=== PATIENT | female | born 1955 | race Caucasian/White ===

== ENCOUNTER 2021-03-12 09:17 | Emergency (ER) | payer OTHER, SELFPAY ==
--- NOTE | ~2021-03-12 | XR_ITS ---
EXAMINATION: XR wrist LT 2V EXAM DATE: 03/12/2021 11:39 INDICATION: Post reduction. TECHNIQUE: Frontal and lateral projections of the left wrist. Comparison is made to prior examinatio n from earlier same date. FINDINGS: There is been reduction in previously seen posterior angulation and displacement to the le ft radial comminuted distal metaphyseal intra-articular fracture. Ulnar styloid avulsion fracture poo rly visualized through the splint which has been applied. IMPRESSION: Splinted, reduced left distal radial and ulnar styloid fractures. Reviewed, dictated and finalized at location A.
--- NOTE | ~2021-03-12 | XR_ITS ---
EXAMINATION: XR wrist LT min 3V EXAM DATE: 03/12/2021 09:38 INDICATION: Ground level fall x1day. Swelling, radial side LT wrist pain. Fractures. Initial encounte r. TECHNIQUE: Frontal, oblique, lateral projections left wrist. There is no prior study for comparison . FINDINGS: Acute closed posttraumatic fracture of the left radial distal metaphysis with about 25 deg alex of posterior angulation, mild comminution and mild posterior and radial displacement of some fra gments. Fracture line is identified extending into the radiocarpal joint. Also small acute ulnar styloid closed posttraumatic avulsion fracture. There is overlying soft tissue swelling. Carpal bones are unremarkable. IMPRESSION: 1. Left radial distal metaphyseal comminuted intra-articular fracture. Mild posterior angulation. 2. Tiny ulnar styloid avulsion. Reviewed, dictated and finalized at location A. IMPRESSION: 1. Left radial distal metaphyseal comminuted intra-articular fracture. Mild po sterior angulation. 2. Tiny ulnar styloid avulsion.
[2021-03-12 09:23] VITALS: BP 103/74; PULSE 92; RESP 18; TEMP 36.1; O2SAT 97
[2021-03-12] MEDS: HYDROcodone/acetaminophen (*CRX) 5-325 MG TABLET 1 TAB PO (09:50)
--- NOTE | 2021-03-12 10:15 | ED.UPPEXIN ---
HPI - Extremity Injury (Upper) General Chief Complaint: Extremity Injury, Upper <MARTIR Jara - Last Filed: 03/13/21 12:01> Stated Complaint: left arm injury <MARTIR Jara - Last Filed: 03/13/21 12:01> Time Seen by Provider: 03/12/21 09:31 <MARTIR Jara - Last Filed: 03/13/21 12:01> Source: patient <MARTIR Jara - Last Filed: 03/13/21 12:01> Mode of arrival: ambulatory <MARTIR Jara - Last Filed: 03/13/21 12:01> Limitations: no limitations <MARTIR Jara - Last Filed: 03/13/21 12:01> History of Present Illness HPI narrative: Patient is a 65-year-old female who presents complaining of left wrist pain. Patient reports tripping and falling in bedroom and landing on left wrist last pm. Patient denies hitting head, LOC and denies other injuries. Patient reports taking 2 Tylenol #3 last pm. Moderate edema noted to wrist and hand. Patient denies significant medical history. <MARTIR Jara - Last Filed: 03/13/21 12:01> MD complaint: injury to: left and hand <MARTIR Jara - Last Filed: 03/13/21 12:01> Related Data Allergies/Adverse Reactions: Allergies Allergy/AdvReac Type Severity Reaction Status Date / Time No Known Allergies Allergy Unverified 04/13/15 20:38 <MARTIR Jara - Last Filed: 03/13/21 12:01> Review of Systems Review of Systems: Narrative: CONSTITUTIONAL: Denies fever, chills, or sweats. EYES: Denies visual changes, redness, or discharge. ENT: Denies rhinorrhea, congestion, sore throat, or otalgia. CARDIOVASCULAR: Denies chest pain, palpitations, or edema. RESPIRATORY: Denies cough or dyspnea. GASTROINTESTINAL: Denies abdominal pain, nausea, vomiting, or diarrhea. GENITOURINARY: Denies dysuria or hematuria. SKIN: Denies rash or itching. MUSCULOSKELETAL: Reports left wrist pain NEUROLOGIC: Denies headache, numbness, dizziness, or weakness. PSYCHIATRIC: Denies anxiety or depression. <MARTIR Jara - Last Filed: 03/13/21 12:01> [facility] Past Medical History Medical History: Medical History No significant past medical history <MARTIR Jara - Last Filed: 03/13/21 12:01> Surgical History Surgical History: Surgical History H/O adenoidectomy <MARTIR Jara - Last Filed: 03/13/21 12:01> Family History Family History: Family History Other Hypertension <MARTIR Jara - Last Filed: 03/13/21 12:01> Social History Social History: Social History (Updated 03/12/21 @ 10:19 by MARTIR Jara) Smoking status: Never smoker Alcohol intake: never Substance use: former Substance use type: heroin Living arrangements: with family <MARTIR Jara - Last Filed: 03/13/21 12:01> Exam Narrative: Exam Narrative: GENERAL: Well-appearing, well-nourished, and in no acute distress. HEAD: Normocephalic, atraumatic. EYES: EOMI. No redness or drainage. Conjunctiva are normal. ENT: Mucous membranes pink and moist. CHEST: No respiratory distress. Clear to auscultation. HEART: Regular rate and rhythm. EXTREMITIES: Moderate edema to left hand and wrist, distal sensation intact, able to flex and extend all fingers. Good capillary refill. Deformity noted at left wrist. SKIN: Warm, dry, no rash. NEURO: No focal deficits. Alert and oriented x3. Gait steady. PSYCH: Normal affect. No signs of depression or anxiety. <MARTIR Jara - Last Filed: 03/13/21 12:01> Course [employer] Physician Supervision Patient presenting for evaluation following a fall with left wrist pain/deformity last night. Pt with confirmed communited distal radius fracture with displacement. Pt had hematoma block, and was reduced. Improved alignment. Pt remained neurovascularly i
[2021-03-12 11:05] VITALS: BP 105/67; PULSE 90; RESP 17; O2SAT 99
== END 2021-03-12 12:16 | disposition home or self-care (01) ==
PROVIDERS: Emergency Provider Nurse Practitioner
DX: S52.572A Other intraarticular fracture of lower end of left radius, initial encounter for closed fracture (principal); S52.612A Displaced fracture of left ulna styloid process, initial encounter for closed fracture; W01.0XXA Fall on same level from slipping, tripping and stumbling without subsequent striking against object, initial encounter
CPT/HCPCS: 25605; 73100; 73110; 99285; A4565; A9270